=== PATIENT | male | born 1940 | race Caucasian/White ===

== ENCOUNTER 2017-06-03 13:33 | Emergency (ER) | payer MEDICARE, OTHER ==
[~2017-06-03] VITALS: Ht 182.9 cm; Wt 88.2 kg
[~2017-06-03 13:33] MED LIST: AK-TRACIN500 U/GM TD; ASPIR-LOW81 MG PO; ASPIR-LOX325 MG PO; ASPIRIN E.C. 8181 M1 PO; ASPIRIN E.C. 8181 MG PO; B & O SUPPRETTE1 SUP RC; BACTRIM DS 8001 TAB PO; BIOFLAX1000 MG PO; CALCIUM500 MG PO; CEFADROXIL MON500 MG PO; CEPHALEXIN500 M1 PO; COLACE 100100 MG/CAP PO; FISH OIL CONC1000 MG PO; GARLIC SUPPLEM300 MG; GARLIC1 TAB PO; LISINOPRIL10 MG PO; LISINOPRIL20 MG PO; MULTIPLE VITAMI1 CAP PO; MULTIPLE VITAMI1 TAB PO; MVI; NEXIUM20 MG PO; NORCO 325 MG-51 TAB PO; OMEGA-3 FISH1200 MG PO; PEPCID 20MG TAB20 MG PO; PERCOCET 325 MG1 TA2 PO; PREDNISONE20 MG PO; SEPTRA DS 8001 TAB PO; SIMVASTATIN10 MG PO; VICODIN 5/5001 UDTAB PO; VITAMIN D5000 IU PO; ZOCOR 20MG20 MG PO; [UNRECOGNIZED DRUG - OTHER] PO
[2017-06-03 13:34] VITALS: TEMP 97.5
[2017-06-03 14:44] LABS: BASO # 0.1 (0.0-0.2); BASO % 1.1 % (0.0-2.0); EOS # 0.3 (0.0-0.7); LYMPH # 1.4 (1.2-3.4); LYMPH % 25.9 % (20.0-51.0); MEAN CELL VOLUME 93 fl (80.0-100.0); MEAN CORPUSCULAR HGB CONC 35 g/dl (33.0-37.0); MEAN PLATELET VOLUME 9.8 fl (7.4-10.4); MONO # 0.5 (0.1-0.6); MONO % 9.8 % (1.7-9.3); PLATELET COUNT 196 K/mm3 (130-400); RED BLOOD COUNT 3.41 M/mm3 (4.20-5.60); WHITE BLOOD COUNT 5.3 K/mm3 (4.8-10.8)
[2017-06-03 14:47] LABS: HEMATOCRIT 31.6 % (42.0-52.0); HEMOGLOBIN 11.1 g/dl (13.5-18.0); MEAN CORPUSCULAR HEMOGLOBIN 33 pg (27.0-31.0)
[2017-06-03 14:53] LABS: ADJUSTED CALCIUM 9.5 mg/dL (8.4-10.2); ALANINE AMINOTRANSFERASE 26 U/L (21-72); ALBUMIN 4.4 gm/dL (3.5-5.0); ALKALINE PHOSPHATASE 51 U/L (50-136); ANION GAP 11 mmol/L (7-16); BILIRUBIN,TOTAL 1.3 mg/dL (0.0-1.0); BLOOD UREA NITROGEN 19 mg/dL (9-20); CALCIUM 9.8 mg/dL (8.4-10.2); CARBON DIOXIDE 24 mmol/L (22-30); CHLORIDE 104 mmol/L (98-107); CREATININE, serum 0.98 mg/dL (0.66-1.25); GLUCOSE 99 mg/dL (74-106); LIPASE 126 U/L (23-300); POTASSIUM 4.5 mmol/L (3.4-5.0); SODIUM 139 mmol/L (137-145); TOTAL PROTEIN 7.2 gm/dL (6.4-8.2)
[2017-06-03 15:05] LABS: B-TYPE NATRIURETIC PEPTIDE 102 pg/mL (0-450); TROPONIN-I < 0.012 ng/mL (0.000-0.034)
[2017-06-03 17:57] VITALS: BP 109/74; PULSE 51
== END 2017-06-03 17:57 | disposition home or self-care (01) ==
LOC: COL.ER 13:33
PROVIDERS: Emergency Medicine
DX: R07.89 Other chest pain (principal); I10 Essential (primary) hypertension; E78.5 Hyperlipidemia, unspecified; Z85.46 Personal history of malignant neoplasm of prostate; Z79.82 Long term (current) use of aspirin

== ENCOUNTER 2017-06-17 08:50 | Day surgery (SDC) | payer MEDICARE, OTHER ==
[2017-06-17] VITALS (11 sets, daily range): BP systolic 105–126; BP diastolic 55–70; PULSE 45–66
[~2017-06-17] VITALS: Ht 183 cm; Wt 88.8 kg
[~2017-06-17 08:50] MED LIST changes: -LISINOPRIL20 MG PO; +OMEGA-3 FISH1000 MG PO; -OMEGA-3 FISH1200 MG PO; -VITAMIN D5000 IU PO; +VITAMIND3 5000 PO; +ZESTRIL 20MG TA20 MG PO
[2017-06-17 09:50] LABS: MEAN CELL VOLUME 95 fl (80.0-100.0); MEAN CORPUSCULAR HGB CONC 34 g/dl (33.0-37.0); MEAN PLATELET VOLUME 9.3 fl (7.4-10.4); PLATELET COUNT 189 K/mm3 (130-400); RED BLOOD COUNT 3.37 M/mm3 (4.20-5.60); WHITE BLOOD COUNT 4.2 K/mm3 (4.8-10.8)
[2017-06-17 09:52] LABS: MEAN CORPUSCULAR HEMOGLOBIN 33 pg (27.0-31.0)
[2017-06-17 10:00] LABS: CALCIUM 9.6 mg/dL (8.4-10.2); POTASSIUM 4.5 mmol/L (3.4-5.0)
[2017-06-17] MEDS ORDERED: CASODEX 50MG TA50 MG PO (10:00)
[2017-06-17] MEDS ORDERED: OSCAL 500 TAB500 MG PO (10:02)
[2017-06-17] MEDS ORDERED: NITROSTAT0.4 MG/TAB SL (10:09)
[2017-06-17] MEDS ORDERED: MEGACE 40MG40 MG/TAB PO (10:12)
[2017-06-17] MEDS ORDERED: ALEVE 220MG220 MG PO (10:13)
[2017-06-17] MEDS ORDERED: LOPRESSOR 225 MG/TAB PO (10:15)
== END 2017-06-17 15:43 | disposition home or self-care (01) ==
LOC: COL.CAR 08:50 → EUO 08:50
PROVIDERS: Internal Medicine Cardiovascular Disease
DX: R07.89 Other chest pain (principal); I25.10 Atherosclerotic heart disease of native coronary artery without angina pectoris; R94.39 Abnormal result of other cardiovascular function study; I10 Essential (primary) hypertension; E78.2 Mixed hyperlipidemia; Z79.82 Long term (current) use of aspirin; C61 Malignant neoplasm of prostate; C79.9 Secondary malignant neoplasm of unspecified site; E78.00 Pure hypercholesterolemia, unspecified
CPT/HCPCS: C1760; C1894; J2250; J3010; Q9967

== ENCOUNTER → 2017-10-25 | Outpatient (CLI) | payer MEDICARE, OTHER ==
[~2017-10-25] MED LIST changes: +ALEVE 220MG220 MG PO; +CASODEX 50MG TA50 MG PO; +LOPRESSOR 225 MG/TAB PO; +MEGACE 40MG40 MG/TAB PO; +NITROSTAT0.4 MG/TAB SL; +OSCAL 500 TAB500 MG PO
== END ==
LOC: COL.RAD 08:57
DX: C61 Malignant neoplasm of prostate (principal)
CPT/HCPCS: A9503

== ENCOUNTER → 2017-11-08 | Outpatient (CLI) | payer MEDICARE, OTHER ==
[~2017-11-08] VITALS: Ht 183 cm; Wt 92.4 kg
[2017-11-08] VITALS (12 sets, daily range): BP systolic 103–149; BP diastolic 67–75; PULSE 47–60
[~2017-11-08] MED LIST changes: -ASPIRIN E.C. 8181 M1 PO; -BIOFLAX1000 MG PO; +CALCIUM CARBON650 M2 PO; +FLAX OIL1000 MG PO; -SIMVASTATIN10 MG PO; +ZOCOR 10MG10 MG PO
== END ==
LOC: COL.RAD 06:40
DX: R19.09 Other intra-abdominal and pelvic swelling, mass and lump (principal); Z90.79 Acquired absence of other genital organ(s); Z90.49 Acquired absence of other specified parts of digestive tract; Z98.890 Other specified postprocedural states; Z85.46 Personal history of malignant neoplasm of prostate; Z85.49 Personal history of malignant neoplasm of other male genital organs

== ENCOUNTER → 2019-06-05 | Outpatient (CLI) | payer MEDICARE, OTHER | LOC: COL.RAD 08:48 | DX: C61 Malignant neoplasm of prostate (principal); S22.060A Wedge compression fracture of T7-T8 vertebra, initial encounter for closed fracture; R59.0 Localized enlarged lymph nodes; Z90.79 Acquired absence of other genital organ(s); Z90.49 Acquired absence of other specified parts of digestive tract | CPT/HCPCS: A9503; Q9967 ==

== ENCOUNTER → 2020-04-02 | Outpatient (CLI) | payer MEDICARE, OTHER ==
[~2020-04-02] MED LIST changes: +ASPIRIN 32325 MG/TA1 PO; +FERROUS SU325 MG/TAB PO; +MASON NATURAL1200 MG PO; +MEDROL4 MG PO; +METAMUCIL3.4 GM/DOS PO; +MIRALAX PA17 GM/Dose PO; -MULTIPLE VITAMI1 CAP PO; +MULTIPLE VITAMI1 TA5 PO; -OMEGA-3 FISH1000 MG PO; +SENOKOT S 50 MG1 TAB PO; +TYLENOL 325MG325 MG PO; +ULTRAM 50MG TAB50 MG PO; +YONSA125 MG PO
== END ==
LOC: COL.RAD 08:52
DX: C61 Malignant neoplasm of prostate (principal); C79.51 Secondary malignant neoplasm of bone; Z90.49 Acquired absence of other specified parts of digestive tract; Z90.79 Acquired absence of other genital organ(s)
CPT/HCPCS: A9503; Q9967

== ENCOUNTER 2020-05-14 12:28 | Inpatient (IN) | payer MEDICARE, OTHER ==
[2020-05-14] VITALS (105 sets, daily range): BP systolic 93; BP diastolic 37; PULSE 72; TEMP 98; O2SAT 90–100
[~2020-05-14] VITALS: Ht 177.8 cm; Wt 98.7 kg
[2020-05-14 13:30] LABS: BASO % 0.6 % (0.0-2.0); EOS # 0.1 (0.0-0.7); EOS % 2.6 % (0-4.0); GRAN % 65.4 % (42.2-75.2); HEMOGLOBIN 8.9 g/dl (13.5-18.0); LYMPH # 0.8 (1.2-3.4); LYMPH % 16.7 % (20.0-51.0); MEAN CELL VOLUME 97 fl (80.0-100.0); MEAN CORPUSCULAR HEMOGLOBIN 32 pg (27.0-31.0); MEAN CORPUSCULAR HGB CONC 33 g/dl (33.0-37.0); MEAN PLATELET VOLUME 9.2 fl (7.4-10.4); MONO # 0.7 (0.1-0.6); MONO % 14.5 % (1.7-9.3); PLATELET COUNT 199 K/mm3 (130-400); RED BLOOD COUNT 2.78 M/mm3 (4.20-5.60); REDCELL DISTRIBUTION WIDTH-CV 13.1 % (11.5-14.5)
[2020-05-14 13:43] LABS: ALBUMIN 2.9 gm/dL (3.5-5.0); BILIRUBIN,TOTAL 0.8 mg/dL (0.0-1.0); C-REACTIVE PROTEIN 6.6 mg/dL (0.0-0.9); CALCIUM 8.5 mg/dL (8.4-10.2); CREATININE, serum 1.92 (0.66-1.25); POTASSIUM 4.5 mmol/L (3.4-5.0); TOTAL PROTEIN 5.3 gm/dL (6.4-8.2)
[2020-05-14] MEDS ORDERED: ZOFRAN 4MG T4 MG/TAB PO (14:38)
[2020-05-14 15:20] LABS: COLLECTION METHOD CATHETER
[2020-05-14 15:30] LABS: MUCOUS Present /lpf; PH 5 (5-8); SQUAMOUS EPITHELIAL None Seen /hpf; URINE APPEARANCE Hazy; URINE BACTERIA None Seen /hpf; URINE BILIRUBIN Negative (NEGATIVE); URINE BLOOD Negative (NEGATIVE); URINE COLOR Amber; URINE GLUCOSE Negative (NEGATIVE); URINE KETONE Negative (NEGATIVE); URINE LEUKOCYTE ESTERASE Negative (NEGATIVE); URINE NITRATE Negative (NEGATIVE); URINE PROTEIN(semi-quant) 1+ (NEGATIVE)
[2020-05-14 18:52] LABS: INR 1.3 (0.8-3.0); PROTHROMBIN TIME 14.1 SECONDS (9.7-12.8)
--- NOTE | 2020-05-14 20:15 | NUR ---
Arrived to the unit via stretcher. Alert and oriented and cooperative with staff. Requested to attempt to void. Able to get up to bedside commode with one assist. Voided 25 ml of kimberly colored urine.
--- NOTE | 2020-05-14 21:15 | NUR ---
Patient remaines hypotensive despite 3L NS. Hospitalist notified. Instructed to initiate Levophed.
[2020-05-15] VITALS (624 sets, daily range): BP systolic 91–121; BP diastolic 37–86; PULSE 52–75; TEMP 97.8–99.8; O2SAT 45–100
--- NOTE | 2020-05-15 03:00 | NUR ---
Resting in bed with; denies any concerns or complaints at this time.
[2020-05-15 04:46] LABS: BASO % 0.6 % (0.0-2.0); EOS # 0.2 (0.0-0.7); EOS % 3.2 % (0-4.0); GRAN # 2.4 (1.4-6.5); GRAN % 51.8 % (42.2-75.2); LYMPH # 1.2 (1.2-3.4); LYMPH % 26.5 % (20.0-51.0); MEAN CELL VOLUME 98 fl (80.0-100.0); MEAN CORPUSCULAR HGB CONC 33 g/dl (33.0-37.0); MEAN PLATELET VOLUME 8.8 fl (7.4-10.4); MONO # 0.8 (0.1-0.6); MONO % 17.7 % (1.7-9.3); PLATELET COUNT 215 K/mm3 (130-400); RED BLOOD COUNT 2.85 M/mm3 (4.20-5.60); REDCELL DISTRIBUTION WIDTH-CV 13.1 % (11.5-14.5)
[2020-05-15 04:49] LABS: HEMATOCRIT 27.8 % (42.0-52.0); HEMOGLOBIN 9.2 g/dl (13.5-18.0); MEAN CORPUSCULAR HEMOGLOBIN 32 pg (27.0-31.0)
[2020-05-15 04:59] LABS: CALCIUM 8.3 mg/dL (8.4-10.2); CREATININE, serum 1.32 (0.66-1.25); INR 1.2 (0.8-3.0); MAGNESIUM 1.7 mg/dL (1.6-2.3); POTASSIUM 4.2 mmol/L (3.4-5.0); PROTHROMBIN TIME 13.4 SECONDS (9.7-12.8)
--- NOTE | 2020-05-15 07:30 | NUR ---
Right arm assessed. +2 edema noted; appears more swollen than previous assessment. Patient denies any pain or tenderness to the area. IV flushed and received blood return. Will continue to monitor.
--- NOTE | 2020-05-15 08:23 | NUR ---
Contacted patient's daughter to request medication list. Will bring it in with her during her visitation. Day shift RN notified.
--- NOTE | 2020-05-15 08:45 | NUR ---
CONCERNED FOR IV INFILTRATION WITH LEVOPHED RUNNING THROUGH A PIV. TURNED LEVO OFF TO HAVE RN VERIFY NO INFILTRATION.
--- NOTE | 2020-05-15 09:27 | NUR ---
I spoke with Tim this morning and reports feeling better. He has continued to take his chemotherapy drug the doctor told him to take. He seemed puzzled when I asked him if he was stopping chemotherapy and denied this. He was to start recieving a bone strengthener drug in the office which he did not do because of how badly he was feeling. He is very awake and alert but reports his daughter knows more about his medications and she will be in later. Tim exercises 30-45 minutes 6 days a week but is clear that he needs a walker or cane for stability when he walks.
[2020-05-15] MEDS ORDERED: PRINIVIL20 MG PO (10:38)
[2020-05-15] MEDS ORDERED: XARELTO20 MG PO (10:40)
[2020-05-15] MEDS ORDERED: PRILOTC PO (10:45)
[2020-05-15] MEDS ORDERED: BETAMETHASONE D0.053 TP (10:51)
--- NOTE | 2020-05-15 11:37 | NUR ---
I talked with daughter by phone this morning and will try to follow up in room later. She reports that her father stopped all chemotherapy drugs 4 days ago and is not even pursuing bone strengthening infusions. 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 He did not tolerate the MSContin that was recently prescribed for general and hip pain. He was also given a script for megace to help his appetite. Pt is to remain a full code until his son gets here in the next few days. Daughter is at home with him and intends to be his caregiver. Family is not ready for hospice services yet.
--- NOTE | 2020-05-15 12:27 | NUR ---
Vancomycin Initial Dosing Pharmacy Note Ordering provider: Carli Sims MD Indication/duration: Empiric coverage Relevant comorbidities: Admitted with dehydration and ALEX, received Zosyn LABS: eCrCl ~ 40 mL/min Recommendation: Loading dose: Dosing cautiously due to ALEX, a 1-gram load was given 05/15/20 at noon. Maintenance dose: 1.25 grams daily Trough goal: 10-15 ug/mL Pharmacy will continue to follow and make adjustments as needed.
--- NOTE | 2020-05-15 14:10 | NUR ---
Tim was sitting up eating strawberries and ice cream. He reports feeling a lot better now. He now has a PICC line which allows him to bend his arms and that is making him happier also. Daughter Caren was in the room and reports she is seeing a big improvement in him and is pleased. Currently they deny questions or concerns.
--- NOTE | 2020-05-15 14:58 | NUR ---
Metal Sorter met with patient to discuss discharge planning. Patient's daughter, Caren (ph#[phone]) is at bedside. Patient advised he lives in [place] and his daughter, Caren has been living with him. Patient sees Dr. Cross for primary care and also follows with Dr. Reece, Oncologist. Patient states he is no longer receiving chemotherapy. Patient obtains medications from [facility] with no difficulties. When asked about DME, patient states "I've got it all". Patient reports he has walkers, wheelchairs, grab bars and commodes. Patient does not use home oxygen although he is currently on 1 liter. SW will continue to monitor. Patient has DPOA-HC in EMR which designates his daughter, Caren and son, Tim. Patient advised that he is normally independent with ADLS and exercises six days a week. Patient has a stationary bike at home that he likes to use. Patient plans to return home upon discharge with his daughter's support. Patient had a palliative consult placed. Per notes from JELENA Rebolledo patient is not interested in hospice services at this time. SW will continue to follow.
[2020-05-15 17:17] LABS: ANION GAP 4 mmol/L (7-16); BLOOD UREA NITROGEN 15 mg/dL (9-20); CALCIUM 7.9 mg/dL (8.4-10.2); CARBON DIOXIDE 23 mmol/L (22-30); CHLORIDE 103 mmol/L (98-107); GLUCOSE 204 mg/dL (74-106); POTASSIUM 4.3 mmol/L (3.4-5.0); SODIUM 130 mmol/L (137-145)
[2020-05-15 17:40] LABS: TROPONIN-I < 0.012 ng/mL (0.000-0.035)
[2020-05-15 17:48] LABS: TSH w REFLEX 0.258 uIU/mL (0.465-4.680)
[2020-05-16] VITALS (265 sets, daily range): BP systolic 98–124; BP diastolic 45–74; PULSE 51–112; TEMP 97.4–98.7; O2SAT 45–100
--- NOTE | 2020-05-16 01:22 | NUR ---
Concern for patient having apnic episodes while sleeping. SPO2 drops into the 60's but comes back up quickly to high 90's. Spoke with ADA Lao about placing patient on bipap for the apnic episodes, patient could have centeral sleep apnea which is why bipap is prefered over cpap. ADA Lao agreed that bipap would be best for patients sleep apnea.
--- NOTE | 2020-05-16 04:03 | NUR ---
PATIENT HAVING APENIC EPISODES WHILE SLEEPING AND DESATS INTO THE 50'S. PLACED ON BIPAP AND HAS IMPROVED ON OXYGENATION. HOWEVER, PATIENT IS NOW NOT WANTING TO WEAR THE BIPAP, EVEN AFTER DISCUSSING IMPORTANTS OF WEARING BIPAP. WILL HOLD OFF WEARING SINCE PATIENT IS NOW AWAKE AND MOVING.
[2020-05-16 05:16] LABS: BASO % 0.3 % (0.0-2.0); EOS # 0.1 (0.0-0.7); EOS % 2.3 % (0-4.0); GRAN # 2.3 (1.4-6.5); GRAN % 66.1 % (42.2-75.2); LYMPH # 0.7 (1.2-3.4); LYMPH % 18.5 % (20.0-51.0); MEAN CELL VOLUME 96 fl (80.0-100.0); MEAN CORPUSCULAR HGB CONC 33 g/dl (33.0-37.0); MEAN PLATELET VOLUME 8.8 fl (7.4-10.4); MONO # 0.4 (0.1-0.6); MONO % 12.5 % (1.7-9.3); PLATELET COUNT 182 K/mm3 (130-400); RED BLOOD COUNT 2.42 M/mm3 (4.20-5.60)
[2020-05-16 05:19] LABS: HEMATOCRIT 23.1 % (42.0-52.0); HEMOGLOBIN 7.7 g/dl (13.5-18.0); MEAN CORPUSCULAR HEMOGLOBIN 32 pg (27.0-31.0)
[2020-05-16 05:27] LABS: CALCIUM 8.1 mg/dL (8.4-10.2); CREATININE, serum 0.73 (0.66-1.25)
[2020-05-16 05:33] LABS: INR 1.2 (0.8-3.0); PROTHROMBIN TIME 13.3 SECONDS (9.7-12.8)
--- NOTE | 2020-05-16 09:15 | NUR ---
Initial visit; Patient thanked Special Class Welder for letting him know of the availability of spiritual care and for offering God's blessings.
--- NOTE | 2020-05-16 12:30 | NUR ---
Report given to JELENA Cuellar.
--- NOTE | 2020-05-16 13:17 | NUR ---
PT transported to room 315 via wheelchair with assistance of this RN. PT moved to medical bed with gaitbelt and assitance of one without incident.
--- NOTE | 2020-05-16 14:00 | NUR ---
Pt arrived to room via w/c with ICU staff and daughter at bedside. PT is resting in room, up with assistance, denies needs, will continue to monitor.
[2020-05-16 16:41] LABS: HEMATOCRIT 25.2 % (42.0-52.0); HEMOGLOBIN 8.4 g/dl (13.5-18.0)
--- NOTE | 2020-05-16 17:44 | NUR ---
Pt has done well, resting in recliner at side of bed. Denies needs, up to bathroom with SBA with walker. Will give bedside shift report to nightshift nurse who will resume care.
--- NOTE | 2020-05-16 21:00 | NUR ---
Patient assessed at this time. Alert and oriented x 4, and able to make needs known. Denies having pain and discomfort at this time. PICC to RUE. Site without redness, warmth, and pain. Dressing CDI. Denies SOB and dyspnea. LS CTA. Respirations even and unlabored. HRR. Capillary refill less than 3 seconds. Non-tenting skin turgor. BSAx4. Abdomen soft and non-tender. 2+ edema BUE, 3+ BLE. Patient has dressings to right elbow and merino for abrasions that are weeping due to increased edema. Voices no questions, needs, or concerns at this time. Assisted into bed at this time as requested. Call light is within reach.
[2020-05-17 02:55] VITALS: BP 126/56; PULSE 58; TEMP 98.2
--- NOTE | 2020-05-17 05:54 | NUR ---
Patient has denied having pain and discomfort this shift. Voices no questions, needs, or concerns at this time. Resting in bed with call light within reach.
[2020-05-17 06:58] LABS: INR 1.1 (0.8-3.0); PROTHROMBIN TIME 12.4 SECONDS (9.7-12.8)
[2020-05-17 08:00] VITALS: BP 99/48; PULSE 60; TEMP 98.4
--- NOTE | 2020-05-17 08:21 | NUR ---
Pt assessment complete. Pt is sitting up in bed, he is A/O x4. His breathing is even and unlabored on RA. Pt denies any SOB, or dizziness. No N/V. Denies pain at this time. Awaiting breakfast, POC discussed verbalizes understanding. Call light within reach.
[2020-05-17 12:00] VITALS: BP 114/58; PULSE 62; TEMP 98.5
[2020-05-17 16:00] VITALS: BP 127/73; PULSE 66; TEMP 97.9
--- NOTE | 2020-05-17 18:15 | NUR ---
Discharge instructions reviewed with patient and his daughter, all questions answered at this time. PICC line removed by JELENA Sarkar. Pt wheeled out of the facility at this time.
== END 2020-05-17 18:15 | disposition home or self-care (01) | DRG 682 ==
LOC: COL.ER 12:28 → MEDICAL 16:34 → ICU 19:01 → MEDICAL 05-16 13:51
PROVIDERS: Emergency Medicine; Student in an Organized Health Care Education/Training Program; ADMIT Internal Medicine
PROC: 02HV33Z Insertion of Infusion Device into Superior Vena Cava, Percutaneous Approach (ICD-10-PCS; principal; 2020-05-15)
PROC: 5A09357 Assistance with Respiratory Ventilation, Less than 24 Consecutive Hours, Continuous Positive Airway Pressure (ICD-10-PCS; 2020-05-16)
DX: N17.9 Acute kidney failure, unspecified (principal); J96.01 Acute respiratory failure with hypoxia; S22.32XA Fracture of one rib, left side, initial encounter for closed fracture; E87.1 Hypo-osmolality and hyponatremia; E86.0 Dehydration; Z85.46 Personal history of malignant neoplasm of prostate; E78.5 Hyperlipidemia, unspecified; I10 Essential (primary) hypertension; D50.0 Iron deficiency anemia secondary to blood loss (chronic); I95.89 Other hypotension; Z20.828 Contact with and (suspected) exposure to other viral communicable diseases
CPT/HCPCS: 99223-AI; 99233-AI; C1751; C1892; J0692; J1644; J2405; J2543; J3370; J7030; J7050; J7060; J7509

== ENCOUNTER → 2020-11-03 | Outpatient (CLI) | payer MEDICARE, OTHER ==
[~2020-11-03] MED LIST changes: +ANTACID500 M1 PO; +ASPIRIN 32325 MG/TAB PO; +ATIVAN 1MG T1 MG/TAB PO; +BETAMETHASONE D0.053 TP; +CLARITIN 1010 MG/TAB PO; +DULCOLAX S10 MG/SUPP RC; +DUO-KAPS1 CAP PO; +FENTANYL 25 MCG TD; +IRON TABLETS325 MG PO; +LEADER CLE17 GM/Dose PO; +LIDODERM 5% PATC1 EA TP; +MORPHINE 1515 MG/TAB PO; +MS CONTIN 115 MG/TAB PO; +PREDNISONE 5MG5 MG PO; +PREVAGEN PO; +PRILOSEC 20MG20 MG PO; +PRILOTC PO; +PRINIVIL20 MG PO; +ROXANOL 20MG20 MG/ML PO; +SENEXON-S 50-81 EACH PO; +VITAMIN B122500 MCG SL; +XARELTO20 MG PO; +ZOFRAN 4MG T4 MG/TAB PO; +ZOFRAN8 MG PO
== END ==
LOC: COL.RAD 09:08
DX: C61 Malignant neoplasm of prostate (principal)
CPT/HCPCS: A9503; Q9967

== ENCOUNTER 2020-11-12 08:08 | Day surgery (SDC) | payer MEDICARE, OTHER ==
[~2020-11-12] VITALS: Ht 182.9 cm; Wt 80.5 kg
[~2020-11-12 08:08] MED LIST changes: -ANTACID500 M1 PO; -ASPIRIN 32325 MG/TAB PO; -ATIVAN 1MG T1 MG/TAB PO; -CLARITIN 1010 MG/TAB PO; -DULCOLAX S10 MG/SUPP RC; -DUO-KAPS1 CAP PO; -FENTANYL 25 MCG TD; -IRON TABLETS325 MG PO; -LEADER CLE17 GM/Dose PO; -LIDODERM 5% PATC1 EA TP; -MORPHINE 1515 MG/TAB PO; -MS CONTIN 115 MG/TAB PO; -PREDNISONE 5MG5 MG PO; -PREVAGEN PO; -PRILOSEC 20MG20 MG PO; -ROXANOL 20MG20 MG/ML PO; -SENEXON-S 50-81 EACH PO; -VITAMIN B122500 MCG SL; -ZOFRAN8 MG PO
[2020-11-12 08:42] VITALS: BP 103/58; PULSE 58; TEMP 97.5
[2020-11-12] MEDS ORDERED: DUO-KAPS1 CAP PO (09:16)
[2020-11-12] MEDS ORDERED: CALCIUM CARBON650 M2 PO (09:16)
[2020-11-12] MEDS ORDERED: CLARITIN 1010 MG/TAB PO (09:17)
[2020-11-12] MEDS ORDERED: PREVAGEN PO (09:17)
[2020-11-12] MEDS ORDERED: PRINIVIL20 MG PO (09:18)
[2020-11-12] MEDS ORDERED: VITAMIN B122500 MCG SL (09:18)
[2020-11-12] MEDS ORDERED: IRON TABLETS325 MG PO (09:19)
[2020-11-12] MEDS ORDERED: ZOCOR 10MG10 MG PO (09:19)
[2020-11-12] MEDS ORDERED: MORPHINE 1515 MG/TAB PO (09:20)
[2020-11-12] MEDS ORDERED: PRILOSEC 20MG20 MG PO (09:20)
[2020-11-12] MEDS ORDERED: FENTANYL 25 MCG TD (09:21)
[2020-11-12] MEDS ORDERED: NORCO 325 MG-51 TAB PO (09:22)
[2020-11-12] MEDS ORDERED: ASPIRIN 32325 MG/TAB PO (09:22)
[2020-11-12] MEDS ORDERED: LIDODERM 5% PATC1 EA TP (09:22)
[2020-11-12 11:00] VITALS: BP 145/59; PULSE 70
--- NOTE | 2020-11-12 11:00 | NUR ---
Patient returns to room 7 per cart from surgery accompanied by Carola BOWLES and Van HAYES. Awake and alert and dressing to the left port a catheter insertion site clean and dry. No swelling noted to incisional sites. Temp 97.3 and room air sats 93%. IV fluids infusing and site is free of redness. Siderails up x2 and call light in reach. Allowed to sleep.
[2020-11-12 11:15] VITALS: BP 128/60; PULSE 62
--- NOTE | 2020-11-12 11:15 | NUR ---
Awake and drinking coffee and water.
[2020-11-12 11:30] VITALS: BP 121/57; PULSE 58
--- NOTE | 2020-11-12 11:30 | NUR ---
Eating muffin and sipping on coffee. Denies pain or nausea.
[2020-11-12 11:45] VITALS: BP 110/54; PULSE 57
--- NOTE | 2020-11-12 11:45 | NUR ---
Resting and denies pain or nausea. Toerated muffin and coffee.
--- NOTE | 2020-11-12 11:50 | NUR ---
IV discontinued and site is free of redness. Patient dresses self and daughter in room to assist if needed.
--- NOTE | 2020-11-12 12:15 | NUR ---
Patient dismissed to home driven by daughter and taken to the front door per wheelchair and assisted into vehicle with dismissal instructions in hand.
== END 2020-11-12 12:15 | disposition home or self-care (01) ==
LOC: SDCO 08:08
DX: C61 Malignant neoplasm of prostate (principal); C79.51 Secondary malignant neoplasm of bone; C79.31 Secondary malignant neoplasm of brain; M19.90 Unspecified osteoarthritis, unspecified site; E78.5 Hyperlipidemia, unspecified; I10 Essential (primary) hypertension; Z96.649 Presence of unspecified artificial hip joint; Z20.822 Contact with and (suspected) exposure to COVID-19; Z79.891 Long term (current) use of opiate analgesic; Z79.82 Long term (current) use of aspirin; Z79.899 Other long term (current) drug therapy; Z83.3 Family history of diabetes mellitus; Z80.9 Family history of malignant neoplasm, unspecified
CPT/HCPCS: C1788; J1644; J2704; J7120

== ENCOUNTER 2020-12-07 13:46 | Inpatient (IN) | payer MEDICARE, OTHER ==
[~2020-12-07] VITALS: Ht 182.9 cm; Wt 77.7 kg
[~2020-12-07 13:46] MED LIST changes: +ASPIRIN 32325 MG/TAB PO; +CLARITIN 1010 MG/TAB PO; +DUO-KAPS1 CAP PO; +FENTANYL 25 MCG TD; +IRON TABLETS325 MG PO; +LIDODERM 5% PATC1 EA TP; +MORPHINE 1515 MG/TAB PO; +PREVAGEN PO; +PRILOSEC 20MG20 MG PO; +VITAMIN B122500 MCG SL
[2020-12-07 14:54] LABS: MEAN CELL VOLUME 93 fl (80.0-100.0); MEAN CORPUSCULAR HGB CONC 34 g/dl (33.0-37.0); PLATELET COUNT 151 K/mm3 (130-400); RED BLOOD COUNT 2.72 M/mm3 (4.20-5.60); REDCELL DISTRIBUTION WIDTH-CV 13.1 % (11.5-14.5)
[2020-12-07 14:58] LABS: HEMATOCRIT 25.4 % (42.0-52.0); HEMOGLOBIN 8.5 g/dl (13.5-18.0); MEAN CORPUSCULAR HEMOGLOBIN 31 pg (27.0-31.0)
[2020-12-07 15:06] LABS: ALBUMIN 2.9 gm/dL (3.5-5.0); BILIRUBIN,TOTAL 1.3 mg/dL (0.0-1.0); C-REACTIVE PROTEIN 4.7 mg/dL (0.0-0.9); CALCIUM 8.5 mg/dL (8.4-10.2); CREATININE, serum 0.74 (0.66-1.25); POTASSIUM 3.6 mmol/L (3.4-5.0); TOTAL PROTEIN 5.3 gm/dL (6.4-8.2)
[2020-12-07] MEDS ORDERED: PREDNISONE 5MG5 MG PO (15:12)
[2020-12-07] MEDS ORDERED: MS CONTIN 115 MG/TAB PO (15:14)
[2020-12-07] MEDS ORDERED: ZOFRAN8 MG PO (15:14)
[2020-12-07 15:24] LABS: BAND 1 % (0-10); BASOPHIL 2 % (0-2); EOSINOPHIL 2 % (0-4); LYMPHOCYTE 28 % (20.0-51.0); MYELOCYTE 1 % (0-0); NEUTROPHILS 54 % (42.0-75.2); PLATELET ESTIMATE NORMAL (NORMAL)
[2020-12-07 16:46] LABS: COLLECTION METHOD CLEAN CATCH
[2020-12-07 16:52] LABS: PH 8 (5-8); SQUAMOUS EPITHELIAL 0-2 /hpf; URINE APPEARANCE Clear; URINE BACTERIA None Seen /hpf; URINE BILIRUBIN Negative (NEGATIVE); URINE BLOOD Negative (NEGATIVE); URINE COLOR Yellow; URINE GLUCOSE Negative (NEGATIVE); URINE KETONE Negative (NEGATIVE); URINE LEUKOCYTE ESTERASE Negative (NEGATIVE); URINE NITRATE Negative (NEGATIVE); URINE PROTEIN(semi-quant) Negative (NEGATIVE); URINE RBC None Seen /hpf
--- NOTE | 2020-12-07 18:24 | NUR ---
Patient to room 311 from the ER by stretcher. with the patient. Patient ambulated with 1xassist to the bed. Repositioned for comfort. Call light within reach
[2020-12-07 18:38] VITALS: BP 115/56; PULSE 77; TEMP 98.8
--- NOTE | 2020-12-07 20:00 | NUR ---
Pt admitted to medical from ER- dx: N/V weakness, Has NS at 125cc/hr to port left chest, states has back pain 12/18- will give M.S contin at this time as ordered, pt has duragesic patch 25mcg on left shoulder- was placed 12/06/20-next dose will be 12/09/20 at 1900. Up to bathroom with assist. weak gait- had some soft stool and voided- back to bed- bed alarm on- understands to call for assistance.
[2020-12-07 20:58] VITALS: BP 98/48; PULSE 69; TEMP 99
[2020-12-08] VITALS (7 sets, daily range): BP systolic 89–105; BP diastolic 38–64; PULSE 54–66; TEMP 98.1–98.7
--- NOTE | 2020-12-08 05:52 | NUR ---
Quiet night- VSS, pt states feels much better this morning- more talkative, alert, IV fluids continue at 125cc/hr.
[2020-12-08 07:11] LABS: MEAN CELL VOLUME 95 fl (80.0-100.0); MEAN CORPUSCULAR HGB CONC 32 g/dl (33.0-37.0); MEAN PLATELET VOLUME 11.2 fl (7.4-10.4); PLATELET COUNT 140 K/mm3 (130-400); RED BLOOD COUNT 2.35 M/mm3 (4.20-5.60); REDCELL DISTRIBUTION WIDTH-CV 13.1 % (11.5-14.5)
[2020-12-08 07:26] LABS: ANION GAP 1 mmol/L (7-16); BLOOD UREA NITROGEN 14 mg/dL (9-20); CALCIUM 7.9 mg/dL (8.4-10.2); CARBON DIOXIDE 27 mmol/L (22-30); CHLORIDE 105 mmol/L (98-107); CREATININE, serum 0.65 (0.66-1.25); GLUCOSE 89 mg/dL (74-106); MAGNESIUM 1.5 mg/dL (1.6-2.3); POTASSIUM 3.5 mmol/L (3.4-5.0); SODIUM 133 mmol/L (137-145)
[2020-12-08 07:28] LABS: CREATINE KINASE < 20 U/L (55-170)
[2020-12-08 07:32] LABS: PRE ALBUMIN 11.4 mg/dL (17.6-36.0)
[2020-12-08 07:43] LABS: HEMATOCRIT 22.3 % (42.0-52.0); HEMOGLOBIN 7.1 g/dl (13.5-18.0); MEAN CORPUSCULAR HEMOGLOBIN 30 pg (27.0-31.0)
[2020-12-08 08:25] LABS: BAND 22 % (0-10); LYMPHOCYTE 32 % (20.0-51.0); NEUTROPHILS 40 % (42.0-75.2); OVALOCYTES 2+; PLATELET ESTIMATE NORMAL (NORMAL)
--- NOTE | 2020-12-08 08:44 | NUR ---
Pt assessment complete. Pt is sitting up in bed upon entry, he is A/O x4. His breathing is even and unlabored on 2L O2 via NC. Pt denies SOB. He currently denies any pain. No N/V/D present, patient reports feeling much better today. IVF infusing without complications into PAC. No needs at this time. Call light within reach.
--- NOTE | 2020-12-08 18:31 | NUR ---
Pt had uneventful day, up to the chair for a large part of the afternoon. Had intermittent pain to his back, relieved with PRN pain medication. No needs at this time. Call light within reach.
--- NOTE | 2020-12-08 20:30 | NUR ---
Initial shift assessment done- states feels nauseated tonight-- will give Zofran as ordered, Up to bathroom with assist/walker- steady on feet. IV fluids of NS at 75cc/hr, did start potassium replacement tonight for potassium level of 3.5,,
[2020-12-09] VITALS (8 sets, daily range): BP systolic 78–98; BP diastolic 41–52; PULSE 58–63; TEMP 98–98.9
--- NOTE | 2020-12-09 00:20 | NUR ---
B/P remains at 89/51,,[employer] called, also pt states Zofran did not help his "upset stomach" would like a Tums instead - orders obtained for Tums and to increase IV fluids to 125cc/hr- also did put his o2 on for the night at 2L/nc--pt home routine.
--- NOTE | 2020-12-09 04:42 | NUR ---
Blood pressure remains soft- 84/41 R/arm,,89/43 L/arm,, pt denies pain, states has been resting some in the last few hours. Order for 500cc IV NS fluid bolus over 30min-- started at this time from existing IV NS Fluid bag.
--- NOTE | 2020-12-09 05:38 | NUR ---
After 500cc NS IV bolus B/P 97/47, patient resting quietly
[2020-12-09 06:02] LABS: MEAN CELL VOLUME 96 fl (80.0-100.0); MEAN CORPUSCULAR HGB CONC 32 g/dl (33.0-37.0); MEAN PLATELET VOLUME 11.2 fl (7.4-10.4); PLATELET COUNT 140 K/mm3 (130-400); RED BLOOD COUNT 2.33 M/mm3 (4.20-5.60); REDCELL DISTRIBUTION WIDTH-CV 13.2 % (11.5-14.5)
[2020-12-09 06:13] LABS: CALCIUM 7.6 mg/dL (8.4-10.2); CREATININE, serum 0.64 (0.66-1.25); MAGNESIUM 1.8 mg/dL (1.6-2.3); POTASSIUM 3.5 mmol/L (3.4-5.0)
[2020-12-09 06:16] LABS: HEMATOCRIT 22.3 % (42.0-52.0); HEMOGLOBIN 7.2 g/dl (13.5-18.0); MEAN CORPUSCULAR HEMOGLOBIN 31 pg (27.0-31.0)
[2020-12-09 07:52] LABS: BAND 23 % (0-10); BASOPHIL 1 % (0-2); EOSINOPHIL 3 % (0-4); LYMPHOCYTE 21 % (20.0-51.0); METAMYELOCYTE 4 % (0-0); NEUTROPHILS 46 % (42.0-75.2); NUCLEATED RED BLOOD CELL 2 (0-6); PLATELET ESTIMATE NORMAL (NORMAL)
--- NOTE | 2020-12-09 10:00 | NUR ---
KYREE attended clinical rounds. The patient's daughter, Caren (ph#[phone]), was at bedside. Caren reports that her, the patient, and her family have decided to stop all chemo and radiation and would like to focus on pain control. She reports that they would like to pursue palliative care. Caren reports that her mother was on palliative/hospice care at [facility] and they would be interested in the patient going there for the same. KYREE informed Caren of the different hospice agencies. Caren would like to see if [facility] can accept the patient first and if there would be any out of pocket costs, before picking a hospice agency or considering a different facility. Caren reports that she has been living with the patient for the past 10 months and taking care of him. The patient's PCP is Dr. Tim Cross and his DPOA-HC is in EMR. It designates Caren. The alternate is the patient's son, Tim. KYREE contacted and faxed a referral to Donnie at [facility]. Awaiting screen. *Discharge plan: palliative care at a facility, awaiting acceptance*
--- NOTE | 2020-12-09 11:44 | NUR ---
Assessment completed, alert/oriented, B/p remain soft but overall VS stable, he reports pain is controlled on normal medication regimen, denies any further N/V this mroning and is tolerting PO intake, hemaglobin at 7.2 / was 7.1 yesterday, no signs of overt bleeding, heart RRR/ distal pulses are palapble, lungs CTA/ no resp.difficulty noted, daughter present in the room, palliative care consult in place to evaluate direction of care and patients goals
--- NOTE | 2020-12-09 14:42 | NUR ---
First visit from the career development facilitator. No needs right now.
--- NOTE | 2020-12-09 16:02 | NUR ---
Donnie, at [facility], reports that the patient's will not cover long-term care and that they would have to private pay. He states that the [facility] by [facility], but that the patient's family could call the [facility] to check to see if he could be eligible for a [place] hospice contract. He states that they will either have a semi-private or a private room, if their hospice room comes comes available w/in the next day. It would be $7500-$8000 to private pay for thirty days. KYREE updated the patient's daughter. The patient's daughter requested that Donnie contact her brother, Tim, to discuss finances. She reports that he is in charge of that. She reports that he is also working on talking to the [facility] to see if the patient would be available for the [facility] hospice contract. KYREE notified Donnie at [facility].
--- NOTE | 2020-12-09 20:00 | NUR ---
Assessment complete. Patient is alert and oriented with no complaints of pain. He ambulates with SBA and a walker to void in the bathroom. Lung sounds are clear and heart sounds are irregular rhythm with a regular rate. No edema is noticed. Left chest port flushes well and is infusing NS. No new concerns, call light in reach.
[2020-12-10 04:25] VITALS: BP 96/43; PULSE 60; TEMP 97.7
[2020-12-10 08:30] VITALS: BP 78/56; PULSE 53; TEMP 98
--- NOTE | 2020-12-10 08:54 | NUR ---
Assessment completed, patient alert/oriented, reports having a good night, reprorts his pain is controlled and is at baseline, he is sitting up eating breakfast now and reported abd discomfort is improved, a.m meds given, patient is comfort cares only and referals sent out yesterday for nursing facilit/ hospice placement, he deines other needs at this time
[2020-12-10 11:00] VITALS: BP 95/58; PULSE 62; TEMP 97.9
--- NOTE | 2020-12-10 16:11 | NUR ---
KYREE met with the patient's daughter, Caren, to review d/c plan. Caren reports that her brother has been in contact with Donnie at [facility]. Caren reports that they are working on getting a [place] hospice contract, but are able to and agreeable to private pay at [facility] until they get that contract. KYREE addressed having a hospice agency. Caren reports that her mother used [facility] and they would like to use them again. KYREE contacted and updated Donnie at [facility]. Donnie reports that they should have a bed available tomorrow for the patient and would be able to accept him. KYREE contacted and faxed a referral to [facility]. Vicki, at [facility], reports that they are able to accept the patient. KYREE updated the patient and his son-in-law. KYREE updated the clinical team. *Discharge plan: [facility] with hospice*
[2020-12-10 16:48] VITALS: BP 80/43; PULSE 60; TEMP 98.3
--- NOTE | 2020-12-10 20:39 | NUR ---
Assessment complete at this time. Patient is alert and orient with complaints of minimal pain. HR is irregular with normal rate and lungs are clear. No edema is noted. No additional concerns, will continue to monitor. Call light in reach.
--- NOTE | 2020-12-11 08:30 | NUR ---
Assessment completed, alert/oriented, reporst his neck and back pain are controlled and tolerable, he is sitting up eating breakfast, morning meds given, patient is comfort cares only, plans for tranfer to LTC w/hospice today, he denies needs at this time
--- NOTE | 2020-12-11 10:43 | NUR ---
Donnie, at [facility], reports that they should have a room ready for the patient this afternoon. He will let SW know, once they are ready for the patient. SW updated the patient and his daughter, Caren. They are in agreement to the plan. KYREE presented and read the IM form outloud to Caren. Caren verbalized understanding and gave SW approval to sign the form on her behalf. KYREE provided her with a copy.
--- NOTE | 2020-12-11 11:15 | NUR ---
Donnie, at [facility], reports that they are ready and able to accept the patient today. KYREE notified the clinical team and Van at [facility]. The patient is to discharge today, 12/11, to [facility] for hospice from [facility]. Transportation was scheduled at 1300, via AV. KYREE informed the patient, his daughter (Caren), his RN, and Van at [facility] of the time. They were all agreeable to the time. No additional needs at this time.
[2020-12-11] MEDS ORDERED: ANTACID500 M1 PO (11:25)
[2020-12-11] MEDS ORDERED: SENEXON-S 50-81 EACH PO (11:26)
[2020-12-11] MEDS ORDERED: LEADER CLE17 GM/Dose PO (11:26)
[2020-12-11 11:37] VITALS: BP 80/43; PULSE 60; TEMP 98.3
[2020-12-11] MEDS ORDERED: FENTANYL 25 MCG TD (11:43)
[2020-12-11] MEDS ORDERED: MS CONTIN 115 MG/TAB PO (11:43)
[2020-12-11] MEDS ORDERED: NORCO 325 MG-51 TAB PO (11:43)
[2020-12-11 12:30] VITALS: BP 112/34; PULSE 47; TEMP 97.6
== END 2020-12-11 15:48 | disposition hospice, inpatient (51) | DRG 391 ==
LOC: COL.ER 13:46 → MEDICAL 17:08
PROVIDERS: Family Medicine; Hospitalist; ADMIT Internal Medicine
DX: R11.2 Nausea with vomiting, unspecified (principal); E43 Unspecified severe protein-calorie malnutrition; T45.1X5A Adverse effect of antineoplastic and immunosuppressive drugs, initial encounter; K59.00 Constipation, unspecified; G72.9 Myopathy, unspecified; Z51.5 Encounter for palliative care; Z66 Do not resuscitate; D70.1 Agranulocytosis secondary to cancer chemotherapy; I10 Essential (primary) hypertension; I95.9 Hypotension, unspecified; E78.5 Hyperlipidemia, unspecified; K59.03 Drug induced constipation; T40.605A Adverse effect of unspecified narcotics, initial encounter; D64.9 Anemia, unspecified; K21.9 Gastro-esophageal reflux disease without esophagitis; E87.6 Hypokalemia; E83.42 Hypomagnesemia; G31.84 Mild cognitive impairment of uncertain or unknown etiology; C61 Malignant neoplasm of prostate; Z20.822 Contact with and (suspected) exposure to COVID-19; Z68.23 Body mass index [BMI] 23.0-23.9, adult
CPT/HCPCS: 99223-AI; 99231-AI; 99232-AI; 99233-AI; 99239; J0692; J1650; J2405; J2550; J3475; J3480; J7030; J7120; J7512

== ENCOUNTER 2021-01-14 06:13 | Inpatient (IN) | payer MEDICARE, OTHER ==
[~2021-01-14] VITALS: Ht 183 cm; Wt 68.2 kg
[~2021-01-14 06:13] MED LIST changes: +ANTACID500 M1 PO; +LEADER CLE17 GM/Dose PO; +MS CONTIN 115 MG/TAB PO; +PREDNISONE 5MG5 MG PO; +SENEXON-S 50-81 EACH PO; +ZOFRAN8 MG PO
[2021-01-14 06:41] LABS: BASO % 0.5 % (0.0-2.0); EOS # 0.1 (0.0-0.7); EOS % 1.3 % (0-4.0); GRAN # 4.6 (1.4-6.5); GRAN % 73.2 % (42.2-75.2); LYMPH # 0.9 (1.2-3.4); LYMPH % 14.2 % (20.0-51.0); MEAN CELL VOLUME 94 fl (80.0-100.0); MEAN CORPUSCULAR HGB CONC 33 g/dl (33.0-37.0); MEAN PLATELET VOLUME 8.8 fl (7.4-10.4); MONO # 0.6 (0.1-0.6); PLATELET COUNT 242 K/mm3 (130-400); RED BLOOD COUNT 3.22 M/mm3 (4.20-5.60); REDCELL DISTRIBUTION WIDTH-CV 14.6 % (11.5-14.5)
[2021-01-14 06:42] LABS: HEMATOCRIT 30.4 % (42.0-52.0); HEMOGLOBIN 9.9 g/dl (13.5-18.0); MEAN CORPUSCULAR HEMOGLOBIN 31 pg (27.0-31.0)
[2021-01-14 06:56] LABS: ALBUMIN 3.1 gm/dL (3.5-5.0); CALCIUM 9.5 mg/dL (8.4-10.2); CREATININE, serum 0.84 (0.66-1.25); POTASSIUM 3.7 mmol/L (3.4-5.0); TOTAL PROTEIN 5.7 gm/dL (6.4-8.2)
[2021-01-14 07:00] LABS: INR 1.1 (0.8-3.0); PROTHROMBIN TIME 12.4 SECONDS (9.7-12.8)
[2021-01-14] MEDS ORDERED: MS CONTIN 115 MG/TAB PO (11:46)
[2021-01-14] MEDS ORDERED: ZOFRAN8 MG PO (11:47)
[2021-01-14 16:49] VITALS: BP 148/70; PULSE 62; TEMP 97.3
[2021-01-14 19:12] VITALS: BP 148/50; PULSE 58; TEMP 98
--- NOTE | 2021-01-14 21:45 | NUR ---
Pt. laying in bed. Pt. is A&Ox3, assessment complete. IV to lt. ac patent, IV fluids infusing per orders. Pt. reports pain to rt. leg at a 7 on pain scale, gave pain meds per orders. Pt. denies further needs, call light within in reach.
[2021-01-15] VITALS (13 sets, daily range): BP systolic 95–157; BP diastolic 47–79; PULSE 52–84; TEMP 97.1–98.2
[2021-01-15 06:24] LABS: BASO % 0.5 % (0.0-2.0); EOS # 0.1 (0.0-0.7); EOS % 1.1 % (0-4.0); GRAN # 4.2 (1.4-6.5); GRAN % 75.3 % (42.2-75.2); LYMPH # 0.5 (1.2-3.4); LYMPH % 9.2 % (20.0-51.0); MEAN CELL VOLUME 96 fl (80.0-100.0); MEAN CORPUSCULAR HGB CONC 32 g/dl (33.0-37.0); MEAN PLATELET VOLUME 9.3 fl (7.4-10.4); MONO # 0.8 (0.1-0.6); MONO % 13.5 % (1.7-9.3); PLATELET COUNT 241 K/mm3 (130-400); RED BLOOD COUNT 3.04 M/mm3 (4.20-5.60); REDCELL DISTRIBUTION WIDTH-CV 14.7 % (11.5-14.5)
[2021-01-15 06:29] LABS: HEMATOCRIT 29.3 % (42.0-52.0); HEMOGLOBIN 9.4 g/dl (13.5-18.0); MEAN CORPUSCULAR HEMOGLOBIN 31 pg (27.0-31.0)
[2021-01-15 06:35] LABS: CALCIUM 9.4 mg/dL (8.4-10.2); CREATININE, serum 0.74 (0.66-1.25); POTASSIUM 3.7 mmol/L (3.4-5.0)
[2021-01-15 10:25] LABS: COLLECTION METHOD CLEAN CATCH
[2021-01-15 10:33] LABS: PH 5 (5-8); SQUAMOUS EPITHELIAL None Seen /hpf; URINE APPEARANCE Hazy; URINE BACTERIA None Seen /hpf; URINE BILIRUBIN Negative (NEGATIVE); URINE BLOOD 1+ (NEGATIVE); URINE COLOR Yellow; URINE GLUCOSE Negative (NEGATIVE); URINE KETONE 1+ (NEGATIVE); URINE LEUKOCYTE ESTERASE Trace (NEGATIVE); URINE NITRATE Negative (NEGATIVE); URINE PROTEIN(semi-quant) 1+ (NEGATIVE)
--- NOTE | 2021-01-15 12:25 | NUR ---
Dr. Edwards in to see patient.
--- NOTE | 2021-01-15 13:51 | NUR ---
Patient is taken out of the unit for surgery.
--- NOTE | 2021-01-15 14:43 | NUR ---
Clinical Informatics Spec contacted the patient's daughter/DPOA-HC Caren to complete intake. The patient is currenlty at [facility] with [facility]. The plan is to return to [facility] with [facility]. The patient's PCP is Dr. Cross and [facility] handles the patient's medications. The patient has advanced directives in the EMR. SW contacted [facility] and he confirms the above. He is in agreeance with the paitent returning there on hospice. Clinical updates faxed. *Discharge disposition: [facility] on hospice
--- NOTE | 2021-01-15 18:25 | NUR ---
Patient up from OR. Drowsy but arouses to touch. Occlusive dressing to right hip is CDI. Fer hose and SCDs to BLE. Post op VSS and post op fluids infusing at this time. Family at bedside. Christie maintained to DD with clear kimberly urine present. Swelling to left eye noted. Denies further needs at this time. Will report off to maintenance supervisor 2nd shift.
--- NOTE | 2021-01-15 19:15 | NUR ---
Pt. laying in bed resting with eyes closed, respirations are equal and unlabored. Pt. will arrouse to verbal stimuli but falls back to sleep. Daughter and other family at bedside. IV to lt. forearm with IV fluids infusing per orders. Dressing to lt. hip CDI. Pt. denies pain or other needs, Vitals stable at this time. Call light within reach.
[2021-01-16 00:27] VITALS: BP 108/61; PULSE 90; TEMP 97.4
[2021-01-16 03:58] VITALS: BP 95/54; PULSE 75; TEMP 97.8
[2021-01-16 06:36] LABS: HEMATOCRIT 24.9 % (42.0-52.0); HEMOGLOBIN 8.3 g/dl (13.5-18.0)
[2021-01-16 07:33] VITALS: BP 99/56; PULSE 75; TEMP 98.7
--- NOTE | 2021-01-16 08:55 | NUR ---
Patient is resting in bed with the breakfast tray intact and his eyes closed. He responds when talking to him and follows comands. Vital signs stable, no nausea or vomiting. Dressing was changed. Edges well approximated. Some blood from the lower anjel was present. Aquacell dressing applied. Medications provided. Family arrived. Pain medication provided. No further needs at this time. Call light within reach.
--- NOTE | 2021-01-16 09:57 | NUR ---
Initial visit; Patient, his son and daughter thanked Electric Motors Salesperson for looking in on him and offering prayer and God's blessings. Patient is having a difficult time and the support of his family is obviously comforting to him.
[2021-01-16] MEDS ORDERED: DULCOLAX S10 MG/SUPP RC (11:02)
[2021-01-16] MEDS ORDERED: FENTANYL 25 MCG TD (11:02)
[2021-01-16] MEDS ORDERED: ROXANOL 20MG20 MG/ML PO (11:02)
--- NOTE | 2021-01-16 11:45 | NUR ---
Industrial Specialist attended clinical rounds with the team. The patient's son and daughter were present. The patient is cleared for discharge today, 01/16. The patient will return to [facility] on hospice with [facility]. The patient is needing EMS transport. SW contacted [facility] and they can transport the patient at 1300. The team and the patient's son and daughter were in agreeance. SW faxed discharge orders to [facility] and [facility] and contacted both regarding the above plan. They were in agreenace. There are no additional needs. *Discharge disposition: [facility] with [facility]*
[2021-01-16] MEDS ORDERED: ATIVAN 1MG T1 MG/TAB PO (11:53)
--- NOTE | 2021-01-16 13:30 | NUR ---
Patient was discharged for hospice care. Left at 1315. Patient took pain medication and lorazepan to be transfered to [facility]. Gown was changed and discontinue 2 IVs in his left arm.
--- NOTE | 2021-01-16 14:37 | NUR ---
Patient has been stable during the day, resting most of the time, respond accurately when talk to him. IVs discontinue for discharge (2 in his left arm), sheth stayed in place for patient comfort and petition by daughter. Patient left hosptial at 1315. Report was given to Zandra Ng at [facility].
== END 2021-01-16 13:15 | disposition hospice, inpatient (51) | DRG 481 ==
LOC: COL.ER 06:13 → SURG 12:09 → MEDICAL 01-16 11:02 → SURG 01-16 13:15
PROVIDERS: Orthopaedic Surgery; Personal Emergency Response Attendant; ADMIT Student in an Organized Health Care Education/Training Program
PROC: 0QSB06Z Reposition Right Lower Femur with Intramedullary Internal Fixation Device, Open Approach (ICD-10-PCS; principal; 2021-01-15 14:00)
DX: S72.401A Unspecified fracture of lower end of right femur, initial encounter for closed fracture (principal); N39.0 Urinary tract infection, site not specified; E87.1 Hypo-osmolality and hyponatremia; C61 Malignant neoplasm of prostate; K59.03 Drug induced constipation; T40.605A Adverse effect of unspecified narcotics, initial encounter; I10 Essential (primary) hypertension; E78.5 Hyperlipidemia, unspecified; D64.9 Anemia, unspecified; Z66 Do not resuscitate; Z51.5 Encounter for palliative care; W18.30XA Fall on same level, unspecified, initial encounter; Y93.9 Activity, unspecified; Z20.828 Contact with and (suspected) exposure to other viral communicable diseases
CPT/HCPCS: 99222-AI; 99233-AI; 99239; A9284; C1713; C1769; J0696; J1170; J2060; J2250; J2270; J2370; J2405; J3010; J7030; J7512; P9016

== ENCOUNTER → 2021-01-19 | Outpatient (CLI) | payer MEDICARE, OTHER ==
[~2021-01-19] MED LIST changes: +ATIVAN 1MG T1 MG/TAB PO; +DULCOLAX S10 MG/SUPP RC; +ROXANOL 20MG20 MG/ML PO
== END ==
LOC: ZLAB.STJ 10:50
DX: Z20.822 Contact with and (suspected) exposure to COVID-19 (principal)